=== PATIENT | female | born 1990 | race Hispanic/Latino ===

== ENCOUNTER 2017-04-30 11:13 | Inpatient (IN) | payer MEDICAID ==
[~2017-04-30] VITALS: Ht 160 cm; Wt 91.6 kg
[2017-04-30] MEDS ORDERED: LACTATED RINGERS 1000ML 1,000 ML IV PRN (20:04)
[2017-04-30 20:20] LABS: APPEARANCE,URINE Clear (CLEAR); BILIRUBIN,URINE Negative (NEGATIVE); COLOR,URINE Yellow (YELLOW); GLUCOSE, URINE (UA) Negative (NEGATIVE); KETONES,URINE Negative (NEGATIVE); LEUKOCYTE ESTERASE ,URINE Negative (NEGATIVE); NITRATE,URINE Negative (NEGATIVE); OCCULT BLOOD,URINE Negative (NEGATIVE); PROTEIN,URINE Negative (NEGATIVE); UROBILINOGEN,URINE 0.2 mg/dL (0.2-1.0)
[2017-04-30 20:48] LABS: HEMATOCRIT 35.7 % (36-48); MEAN CORPUSCULAR HEMOGLOBIN 27.9 pg (27.0-33.0); MEAN CORPUSCULAR HGB CONC 33.8 g/dL (32.0-36.0); MEAN CORPUSCULAR VOLUME 82.4 fL (79-99); PLATELET COUNT (AUTO) 255 K/uL (130-400); RED BLOOD CELL COUNT(AUTO) 4.33 MIL/uL (4.00-5.50); RED CELL DISTRIBUTION WIDTH 15.2 % (11.0-15.5); WHITE BLOOD COUNT (AUTO) 6.5 K/uL (4.8-10.8)
[2017-05-01] MEDS ORDERED: OXYTOCIN 10 USP UNITS/ML ONE ×3 (02:41→18:28)
[2017-05-01] MEDS ORDERED: LACTATED RINGERS 1000ML 1,000 ML IV ONE (02:41)
[2017-05-01] MEDS: OXYTOCIN 10 USP UNITS/ML 20 UNIT in LACTATED RINGERS 1000ML 1,000 ML IV SCH ×2 (03:15→18:33)
[2017-05-01] MEDS ORDERED: PROMETHAZINE HCL 25 MG/ML 1ML AMPULE IM SCH (07:30)
[2017-05-01] MEDS ORDERED: MEPERIDINE-PF 50 MG/ML SYG IVP SCH (07:30)
[2017-05-01] MEDS ORDERED: ACETAMINOPHEN-CODEINE 300/30MG TAB PO PRN (09:15)
[2017-05-01] MEDS ORDERED: BENZOCAINE/LANOLIN/ALOE VERA 60 ML AEROSOL TP PRN (09:15)
[2017-05-01] MEDS ORDERED: LANOLIN 30GM OINTMENT TP PRN (09:15)
[2017-05-01] MEDS ORDERED: HYDROCODONE/ACETAMINOPHEN 5/325 MG TAB PO PRN (09:15)
[2017-05-01] MEDS ORDERED: ACETAMINOPHEN 325 MG TAB PO PRN (09:15)
[2017-05-01] MEDS ORDERED: WITCH HAZEL 1 PAD TP PRN (09:15)
[2017-05-01 11:00] VITALS: BP 140/90
[2017-05-01] MEDS ORDERED: PREN1COM14 PO (11:11)
[2017-05-01] MEDS ORDERED: FERR1TAB22 PO (11:11)
[2017-05-01] MEDS: IBUPROFEN 800 MG TAB PO PRN ×2 (11:30→21:08)
[2017-05-01 16:11] VITALS: BP 102/58
[2017-05-01 20:08] VITALS: BP 110/73
[2017-05-01] MEDS: DOCUSATE SODIUM 100 MG CAP PO SCH (21:07)
[2017-05-01 23:08] VITALS: BP 107/63
[2017-05-02 03:22] VITALS: BP 101/56
[2017-05-02 05:57] LABS: MEAN CORPUSCULAR HGB CONC 33.1 g/dL (32.0-36.0); MEAN CORPUSCULAR VOLUME 84.5 fL (79-99); PLATELET COUNT (AUTO) 199 K/uL (130-400); RED BLOOD CELL COUNT(AUTO) 3.54 MIL/uL (4.00-5.50); RED CELL DISTRIBUTION WIDTH 15.5 % (11.0-15.5); WHITE BLOOD COUNT (AUTO) 9.3 K/uL (4.8-10.8)
[2017-05-02 06:19] LABS: HEPATITIS Bs ANTIGEN SCREEN P Negative (Negative)
[2017-05-02 07:28] VITALS: BP 118/68
[2017-05-02] MEDS: DOCUSATE SODIUM 100 MG CAP PO SCH (08:57)
[2017-05-02] MEDS: IBUPROFEN 800 MG TAB PO PRN (09:00)
[2017-05-02 11:23] VITALS: BP 114/70
[2017-05-02 15:50] VITALS: BP 126/86
[2017-05-02] MEDS ORDERED: IBUP-2070 PO (16:05)
[2017-05-02] MEDS ORDERED: IRON-6 PO (16:05)
== END 2017-05-02 16:40 | disposition home or self-care (01) | DRG 560 ==
LOC: EDSTATUS 12:09 → LDH 19:38 → WSH 05-01 10:55
PROVIDERS: ADMIT Obstetrics & Gynecology; ATTEND Obstetrics & Gynecology
PROC: 0HQ9XZZ Repair Perineum Skin, External Approach (ICD-10-PCS; principal; 2017-05-01)
PROC: 10E0XZZ Delivery of Products of Conception, External Approach (ICD-10-PCS; 2017-05-01)
PROC: 10907ZC Drainage of Amniotic Fluid, Therapeutic from Products of Conception, Via Natural or Artificial Opening (ICD-10-PCS; 2017-05-01)
PROC: 30233N1 Transfusion of Nonautologous Red Blood Cells into Peripheral Vein, Percutaneous Approach (ICD-10-PCS; 2017-05-01)
DX: O69.1XX0 Labor and delivery complicated by cord around neck, with compression, not applicable or unspecified (principal); O71.4 Obstetric high vaginal laceration alone; D64.9 Anemia, unspecified; Z37.0 Single live birth; Z3A.39 39 weeks gestation of pregnancy; Z90.49 Acquired absence of other specified parts of digestive tract; O90.81 Anemia of the puerperium
CPT/HCPCS: 36415; 81003; 85027; 86592; 86850; 86900; 86901; 87340; J2175; J2550; J2590; J7120

== ENCOUNTER 2019-10-02 14:48 | Inpatient (IN) | payer MEDICAID ==
[~2019-10-02] VITALS: Ht 160 cm; Wt 89.8 kg
[~2019-10-02 14:48] MED LIST: OXYTOCIN 10 USP UNITS/ML 20 UNIT in LACTATED RINGERS 1000ML 1,000 ML IV SCH
[2019-10-02] MEDS ORDERED: LACTATED RINGERS 1000ML 1,000 ML IV PRN (16:11)
[2019-10-02] MEDS ORDERED: LACTATED RINGERS 500 ML 500 ML IV PRN (16:15)
[2019-10-02] MEDS ORDERED: PROMETHAZINE HCL 25 MG/ML 1ML AMPULE IM PRN (16:15)
[2019-10-02] MEDS ORDERED: EPHEDRINE SULFATE 50 MG/ML AMPULE IVP PRN (16:15)
[2019-10-02] MEDS ORDERED: NALOXONE HCL 0.4 MG/1 ML ML IV PRN (16:15)
[2019-10-02] MEDS ORDERED: MEPERIDINE-PF 50 MG/ML SYG IVP PRN (16:15)
[2019-10-02] MEDS ORDERED: AMPICILLIN 2GM+NS 100ML 100 ML IV SCH (16:30)
[2019-10-02] MEDS ORDERED: DINOPROSTONE 10 MG VAGINAL SUPP VG SCH (17:50)
[2019-10-02] MEDS ORDERED: AMPICILLIN 2GM+NS 100ML 100 ML IV ONE (18:12)
[2019-10-02 21:19] VITALS: BP 112/71
[2019-10-02] MEDS: AMPICILLIN 1GM+NS 50ML 50 ML IV SCH (22:13)
[2019-10-03] MEDS: AMPICILLIN 1GM+NS 50ML 50 ML IV SCH ×2 (02:19→05:22)
[2019-10-03] MEDS ORDERED: OXYTOCIN-LR 20 UNITS/1000 ML 1,000 ML IV ONE (07:50)
[2019-10-03] MEDS: OXYTOCIN-LR 20 UNITS/1000 ML 1,000 ML IV SCH ×2 (09:03→11:10)
[2019-10-03] MEDS ORDERED: WITCH HAZEL 1 PAD TP PRN (09:15)
[2019-10-03] MEDS ORDERED: MEASLES/MUMPS/RUBELLA VACCINE, LIVE 0.5 ML/VIAL SQ PRN (09:15)
[2019-10-03] MEDS ORDERED: ACETAMINOPHEN 325 MG TAB PO PRN (09:15)
[2019-10-03] MEDS ORDERED: ACETAMINOPHEN-CODEINE 300/30MG TAB PO PRN (09:15)
[2019-10-03] MEDS ORDERED: DIPH,PERTUSS(ACELL),TET VAC/PF 0.5 ML VIAL IM PRN (09:15)
[2019-10-03] MEDS ORDERED: LANOLIN 30GM OINTMENT TP PRN (09:15)
[2019-10-03] MEDS ORDERED: BENZOCAINE/LANOLIN/ALOE VERA 60 ML AEROSOL TP PRN (09:15)
[2019-10-03] MEDS: IBUPROFEN 600 MG TABLET PO PRN (09:55)
[2019-10-03 14:15] VITALS: BP 105/62; PULSE 76; RESP 18; TEMP 98.2
[2019-10-03 16:13] VITALS: BP 93/52; PULSE 75; RESP 18; TEMP 98.4
[2019-10-03 19:33] VITALS: BP 113/82; PULSE 66; RESP 18; TEMP 98.4
[2019-10-03] MEDS: DOCUSATE SODIUM 100 MG CAP PO SCH (21:11)
[2019-10-03 23:41] VITALS: BP 119/61; PULSE 84; RESP 18; TEMP 98.3
[2019-10-04 02:36] VITALS: BP 108/54; PULSE 69; RESP 18; TEMP 98.2
[2019-10-04] MEDS: IBUPROFEN 600 MG TABLET PO PRN (04:20)
[2019-10-04] MEDS: AMPICILLIN 1GM+NS 50ML 50 ML IV SCH (06:00)
[2019-10-04 06:58] VITALS: BP 91/37; PULSE 58; RESP 18; TEMP 98.4
--- NOTE | 2019-10-04 07:40 | NUR ---
ASSESSMENT DONE AND PATIENT DENIES ANY PROBLEMS WITH ACTIVITY AND VITAL SIGNS ARE STABLE. FUNDUS FIRM AND LOCHIA IS SMALL. DRINKING PLENTY OF FLUIDS AND VERBALIZED BABY IS WELL.
[2019-10-04] MEDS: DOCUSATE SODIUM 100 MG CAP PO SCH (08:49)
--- NOTE | 2019-10-04 10:30 | NUR ---
WRITTEN ORDER LEFT FOR DISCHARGE AFTER 24 HOURS AND DISCHARGE INSTRUCTIONS WERE GIVEN AT THIS TIME. PATIENT IS STABLE AND BABY WILL BE DISCHARGED TOO. PATIENT INSTRUCTED TO TAKE MOTRIN OVER THE COUNTER FOR PAIN AND CRAMPING AND VERBALIZED UNDERSTANDING DOSAGE AND FREQUENCY EXPLAINED TO HER.
[2019-10-04 11:22] VITALS: BP 105/62; PULSE 75; RESP 18; TEMP 98.2
--- NOTE | 2019-10-04 11:55 | NUR ---
PATIENT WAS TAKEN VIA W/C TO FAMILY [facility]LE CARRYING BABY IN ARMS. PATIENT DENIES PAIN AND REMAINS STABLE. BOTH PATIENT AND BABY WERE DISCHARGED TO PATIENT'S SPOUSE.
== END 2019-10-04 11:55 | disposition home or self-care (01) | DRG 560 ==
LOC: PREOBSVTOIN 14:48 → LDH 15:43 → WSH 10-03 14:15
PROVIDERS: ADMIT Obstetrics & Gynecology; ATTEND Obstetrics & Gynecology
PROC: 10E0XZZ Delivery of Products of Conception, External Approach (ICD-10-PCS; principal; 2019-10-03)
PROC: 3E0234Z Introduction of Serum, Toxoid and Vaccine into Muscle, Percutaneous Approach (ICD-10-PCS; 2019-10-03)
PROC: 3E0134Z Introduction of Serum, Toxoid and Vaccine into Subcutaneous Tissue, Percutaneous Approach (ICD-10-PCS; 2019-10-03)
PROC: 3E033VJ Introduction of Other Hormone into Peripheral Vein, Percutaneous Approach (ICD-10-PCS; 2019-10-03)
PROC: 3E0P7VZ Introduction of Hormone into Female Reproductive, Via Natural or Artificial Opening (ICD-10-PCS; 2019-10-03)
DX: O69.81X0 Labor and delivery complicated by cord around neck, without compression, not applicable or unspecified (principal); Z37.0 Single live birth; O99.824 Streptococcus B carrier state complicating childbirth; Z3A.39 39 weeks gestation of pregnancy; Z23 Encounter for immunization

== ENCOUNTER 2022-08-02 13:13 | Emergency (ER) | payer MEDICAID, OTHER ==
[~2022-08-02] VITALS: Ht 160 cm; Wt 88.9 kg
[~2022-08-02 13:13] MED LIST changes: +IBUP-2070 PO; +IRON-6 PO; -OXYTOCIN 10 USP UNITS/ML 20 UNIT in LACTATED RINGERS 1000ML 1,000 ML IV SCH; +PNV71COM PO; +PREN1COM14 PO
[2022-08-02 13:40] LABS: BASOPHILS % (AUTO) 0.3 % (0.0-5.0); EOSINOPHILS % (AUTO) 1.1 % (0.0-8.0); HEMATOCRIT 39.9 % (36-48); LYMPHOCYTES % (AUTO) 25.4 % (21.0-51.0); MEAN CORPUSCULAR HEMOGLOBIN 28.9 pg (27.0-33.0); MEAN CORPUSCULAR HGB CONC 33.6 g/dL (32.0-36.0); MONOCYTES % (AUTO) 6.2 % (3.0-13.0); NEUTROPHILS % (AUTO) 66.8 % (40.0-77.0); PLATELET COUNT (AUTO) 347 K/uL (130-400); RED BLOOD CELL COUNT(AUTO) 4.64 MIL/uL (4.00-5.50); RED CELL DISTRIBUTION WIDTH 12.6 % (11.0-15.5); WHITE BLOOD COUNT (AUTO) 9.3 K/uL (4.8-10.8)
[2022-08-02 13:54] LABS: CREATININE 0.6 mg/dL (0.5-1.5); POTASSIUM 3.4 mmol/L (3.5-5.1)
[2022-08-02 13:58] LABS: APPEARANCE,URINE CLEAR (CLEAR); BILIRUBIN,URINE NEGATIVE (NEGATIVE); COLOR,URINE LIGHT-YELLOW (YELLOW); GLUCOSE, URINE (UA) NEGATIVE (NEGATIVE); KETONES,URINE NEGATIVE (NEGATIVE); LEUKOCYTE ESTERASE ,URINE NEGATIVE Leu/uL (NEGATIVE); NITRATE,URINE NEGATIVE (NEGATIVE); OCCULT BLOOD,URINE NEGATIVE (NEGATIVE); PH,URINE 6.5 (5.0-8.0); PROTEIN,URINE 10 mg/dL (NEGATIVE); UROBILINOGEN,URINE 0.2 mg/dL (0.2-1.0)
[2022-08-02 13:58] LABS: ALBUMIN 3.5 g/dL (3.5-5.0); TOTAL PROTEIN, SERUM 8.1 g/dL (6.0-8.3)
[2022-08-02 14:01] LABS: HCG,QUALITATIVE URINE NEGATIVE (NEGATIVE)
[2022-08-02] MEDS ORDERED: POTASSIUM BICARB/CIT AC 25 MEQ TABLET.EFF PO SCH (14:30)
[2022-08-02 14:33] LABS: MUCUS,URINE RARE LPF (None Seen); RBC,URINE 0-1 /HPF (0-1); SQUAMOUS EPITHELIAL CELL,UR RARE /HPF (0-2); WBC,URINE 0-1 /HPF (0-1)
[2022-08-02] MEDS ORDERED: LACT20PA6 PO (15:52)
[2022-08-02 16:12] VITALS: BP 142/75
== END 2022-08-02 16:29 | disposition home or self-care (01) ==
LOC: EDH 13:13
DX: K59.00 Constipation, unspecified (principal); R10.11 Right upper quadrant pain
CPT/HCPCS: 36415; 74018; 80053; 81001; 81025; 83690; 85025